=== PATIENT | male | born 1975 | race Two or more races ===

== ENCOUNTER 2017-12-25 12:39 | Emergency (ER) | payer SELFPAY ==
[2017-12-25 12:44] VITALS: O2SAT 98
--- NOTE | 2017-12-25 12:58 | ED PDOC ---
HPI: CCC, URI, Sore Throat Time Seen by Provider: 12/25/17 12:44 Chief Complaint (Nursing): Cough, Cold, Congestion Chief Complaint (Provider): Cough History Per: Patient Additional Complaint(s): 42 year old male presents to the ED for an evaluation of cough and body aches since Friday with no associated chest pain or SOB. No recent travel. Patient denies any associated throat pain. PMD: none Past Medical History Reviewed: Historical Data, Nursing Documentation, Vital Signs Vital Signs: Last Vital Signs Temp 98.2 F 12/25/17 12:41 Pulse 98 H 12/25/17 12:41 Resp 20 12/25/17 12:41 BP 180/100 H 12/25/17 12:41 Pulse Ox 98 12/25/17 13:06 - Medical History PMH: No Chronic Diseases - Surgical History Surgical History: No Surg Hx - Family History Family History: States: No Known Family Hx - Social History Current smoker - smoking cessation education provided: Yes (1 ppd) Alcohol: None Drugs: Denies - Home Medications Home Medications: Ambulatory Orders Medication Instructions Recorded Albuterol HFA [Ventolin HFA 90 1 puff IH ASDIR #1 unit 12/25/17 mcg/actuation (8 g)] Azithromycin [Zithromax] 250 mg PO DAILY #6 tab 12/25/17 Benzonatate 200 mg PO TID PRN #20 capsule 12/25/17 amLODIPine [Norvasc] 5 mg PO DAILY #30 tab 12/25/17 - Allergies Allergies/Adverse Reactions: Allergies Allergy/AdvReac Type Severity Reaction Status Date / Time No Known Allergies Allergy Verified 12/25/17 12:40 Review of Systems ROS Statement: Except As Marked, All Systems Reviewed And Found Negative Constitutional: Positive for: Other (body aches). Negative for: Fever ENT: Negative for: Throat Pain Respiratory: Positive for: Cough. Negative for: Shortness of Breath Gastrointestinal: Negative for: Nausea, Vomiting Physical Exam - Reviewed Nursing Documentation Reviewed: Yes Vital Signs Reviewed: Yes - Physical Exam Appears: Positive for: Well, Non-toxic, No Acute Distress Head Exam: Positive for: ATRAUMATIC, NORMAL INSPECTION, NORMOCEPHALIC Skin: Positive for: Normal Color. Negative for: Rash Eye Exam: Positive for: Normal appearance ENT: Positive for: Normal ENT Inspection Cardiovascular/Chest: Positive for: Regular Rate, Rhythm. Negative for: Murmur Respiratory: Positive for: Normal Breath Sounds. Negative for: Decreased Breath Sounds, Accessory Muscle Use, Wheezing, Respiratory Distress Gastrointestinal/Abdominal: Positive for: Normal Exam, Soft. Negative for: Tenderness, Guarding, Rebound Extremity: Positive for: Normal ROM Neurologic/Psych: Positive for: Alert, Oriented (x3) - ECG O2 Sat by Pulse Oximetry: 98 (RA) Pulse Ox Interpretation: Normal - Other Rad CXR X-Ray: Interpreted by Me, Viewed By Me X-Ray Interpretation: no infiltrate Medical Decision Making Medical Decision Making: Time: 1301 Initial Impression: 42 year old male with cough Initial Plan: --Chest Two Views (PA/LAT) [RAD] Rx given for zithromax, tessalon perles and ventolin inhaler. Repeat BP still elevated at 175/97. Patient denies history of HTN. Case was d/ w Dr. Suresh. Patient was started on Norvasc 5 mg tabs daily. Patient was referred to clinic for follow up. He was counseled regarding importance of smoking cessation. Scribe Attestation: Documented by Sunil Gomez, acting as a scribe for Maria A Mejía PA-C Provider Scribe Attestation: All medical record entries made by the Scribe were at my direction and personally dictated by me. I have reviewed the chart and agree that the record accurately reflects my personal performance of the history, physical exam, medical decision making, and the department course for this patient. I have also personally directed, reviewed, and agree with the discharge instructions and disposition. Disposition - Clinical Impression Clinical Impression: Acute bronchitis, High blood pressure - Patient ED Disposition Is Patient to be Admitted: No Counseled Patient/Family Regarding: Studies Performed, Diagnosis, Need For Followup, Rx Given, Smoking Cessation - Disposition Referrals: [facility] [Outside] Disposition: Routine/Home Disposition Time: 13:32 Condition: STABLE Additional Instructions: Take rx meds as directed. Follow up with clinic in 2-3 days. Stop smoking. Prescriptions: Albuterol HFA [Ventolin HFA 90 mcg/actuation (8 g)] 1 puff IH ASDIR #1 unit amLODIPine [Norvasc] 5 mg PO DAILY #30 tab Azithromycin [Zithromax] 250 mg PO DAILY #6 tab Benzonatate 200 mg PO TID PRN #20 capsule PRN Reason: Cough Instructions: Controlling Your Blood Pressure Through Lifestyle, High Blood Pressure in Adults, Acute Bronchitis, Quitting Smoking Forms: [facility] (Uzbek)
--- NOTE | 2017-12-25 13:40 | RAD ---
HISTORY: Cough. COMPARISON: No prior. TECHNIQUE: Chest PA and lateral FINDINGS: LUNGS: No active pulmonary disease. PLEURA: No significant pleural effusion identified. No pneumothorax apparent. CARDIOVASCULAR: No radiographic findings to suggest acute or significant cardiovascular disease. OSSEOUS STRUCTURES: No significant abnormalities. VISUALIZED UPPER ABDOMEN: Normal. OTHER FINDINGS: None. IMPRESSION: No active disease. Concordant results with the preliminary interpretation rendered by the emergency department physician procedure.
[2017-12-25 13:48] VITALS: BP 170/90; PULSE 88; RESP 15; TEMP 98.7
== END 2017-12-25 14:09 | disposition home or self-care (01) ==
LOC: H.ER 12:39
DX: J20.9 Acute bronchitis, unspecified (principal); I10 Essential (primary) hypertension; F17.210 Nicotine dependence, cigarettes, uncomplicated